=== PATIENT | female | born 2000 | race Hispanic/Latino ===

== ENCOUNTER 2021-01-31 14:33 | Emergency (ER) | payer OTHER ==
[2021-01-31 15:15] LABS: Bilirubin Neg (Negative); Blood, Urine Negative (Negative); Clarity Clear (Clear); Glucose, Urine (Dipstick) >=1000 mg/dL (Negative); Ketone, Urine 150 mg/dL (Negative); Leukocyte Negative (Negative); Nitrite Negative (Negative); Protein, Urine (Dipstick) Negative (Neg-Trace); Specific Gravity, Urine 1.005 (1.002-1.036); Urobilinogen Normal mg/dL (Less than 2)
[2021-01-31 15:33] LABS: ALT (SGPT) 20 U/L (8-55); AST (SGOT) 20 U/L (5-34); Alkaline Phosphatase 67 U/L (40-110); Anion Gap 14 mmol/L (10-20); BUN (Urea Nitrogen) 7 mg/dL (7.0-18.7); Bilirubin, Total 0.3 mg/dL (0.2-1.2); Calc. Creatinine Clearance 0 mL/min (70-130); Calcium 8.9 mg/dL (7.8-10.44); Carbon Dioxide 21 mmol/L (22-29); Chloride 102 mmol/L (98-107); Globulin 3.2 g/dL (2.4-3.5); Glucose 414 mg/dL (70-105); Potassium 4.2 mmol/L (3.5-5.1); Protein, Total 7.2 g/dL (6.0-8.3); Sodium 133 mmol/L (136-145)
[2021-01-31 15:47] LABS: #Eosinphils 0.1 10x3/uL (0.0-0.5); #Monocytes 0.3 10x3/uL (0.0-1.1); #Neutrophils 3.3 10x3/uL (1.5-8.4); %Basophils 0.6 % (0.0-2.0); %Eosinophils 1.2 % (0.0-6.0); %Lymphocytes 24.5 % (18.0-47.0); %Monocytes 6.8 % (0.0-10.0); %Neutrophils 66.3 % (40.0-75.0); Hemoglobin 13.9 g/dL (12.0-15.5); Mean Corpuscular HGB CONC 34.9 g/dL (32.0-36.0); Mean Corpuscular Hemoglobin 29.5 pg (27.0-33.0); Mean Corpuscular Volume 84.5 fl (81.6-98.3); Mean Platelet Volume 10.2 fl (7.4-10.4); Platelet Count 252 10x3/uL (150-450); RBC Distribution Width 11.6 % (11.5-14.5); Red Blood Cell (RBC) Count 4.71 10x6/uL (3.90-5.03)
[2021-01-31 16:14] LABS: Actual Bicarbonate (HCO3v) 24 mEq/L (22-28); Base Excess -1.5 mEq/L (-2.0 to +3.0); Calcium, Ionized (venous) 1.15 mmol/L (1.16-1.32); Chloride (VBG) 102 mmol/L (98-106); Hemoglobin (Hb) 13.3 g/dL (11.7-15.5); Potassium (VBG) 3.84 mmol/L (3.70-5.30); Puncture Site Other Site; RapidComm Collect By LAB.CB1; Sodium 135.3 mmol/L (133-146); pH (venous) 7.37 (7.32-7.43)
[2021-01-31] MEDS ORDERED: Insulin Regular 300 UNITS/3 ML VIAL ONE (16:19)
== END 2021-01-31 18:00 | disposition home or self-care (01) ==
LOC: CSHERS 14:33
DX: E11.65 Type 2 diabetes mellitus with hyperglycemia (principal); E86.0 Dehydration; K21.9 Gastro-esophageal reflux disease without esophagitis; F17.290 Nicotine dependence, other tobacco product, uncomplicated; Z87.19 Personal history of other diseases of the digestive system; Z79.4 Long term (current) use of insulin
CPT/HCPCS: 36415; 36416; 71045; 80053; 81003; 82010; 82805; 83690; 85025; 96374; J1815

== ENCOUNTER 2021-04-07 19:40 | Emergency (ER) | payer OTHER ==
[2021-04-07 22:35] LABS: BHCG - Serum Negative (NEGATIVE); Pregs Control Background? CLEAR/WHITE (CLR/WHITE); Pregs Control Bar Appear? YES (CONTROL BAR)
[2021-04-07 22:42] LABS: #Basophils 0.1 10x3/uL (0.0-0.2); #Eosinphils 0.3 10x3/uL (0.0-0.5); #Monocytes 0.5 10x3/uL (0.0-1.1); #Neutrophils 4.1 10x3/uL (1.5-8.4); %Basophils 0.7 % (0.0-2.0); %Eosinophils 3.8 % (0.0-6.0); %Lymphocytes 30.6 % (18.0-47.0); %Monocytes 7.4 % (0.0-10.0); %Neutrophils 57.1 % (40.0-75.0); ALT (SGPT) 10 U/L (8-55); AST (SGOT) 9 U/L (5-34); Albumin 4.2 g/dL (3.5-5.0); Alkaline Phosphatase 66 U/L (40-110); Anion Gap 13 mmol/L (10-20); BUN (Urea Nitrogen) 10 mg/dL (7.0-18.7); Bilirubin, Total 0.4 mg/dL (0.2-1.2); Calc. Creatinine Clearance 0 mL/min (70-130); Calcium 9.3 mg/dL (7.8-10.44); Carbon Dioxide 24 mmol/L (22-29); Chloride 101 mmol/L (98-107); Globulin 3.3 g/dL (2.4-3.5); Glucose 315 mg/dL (70-105); Hemoglobin 13.9 g/dL (12.0-15.5); Mean Corpuscular HGB CONC 34.9 g/dL (32.0-36.0); Mean Corpuscular Hemoglobin 29.5 pg (27.0-33.0); Mean Corpuscular Volume 84.5 fl (81.6-98.3); Platelet Count 308 10x3/uL (150-450); Potassium 4.4 mmol/L (3.5-5.1); Protein, Total 7.5 g/dL (6.0-8.3); RBC Distribution Width 12.6 % (11.5-14.5); Red Blood Cell (RBC) Count 4.71 10x6/uL (3.90-5.03); Sodium 134 mmol/L (136-145); White Blood Cell (WBC) Count 7.2 10x3/uL (3.5-10.5)
[2021-04-09 08:00] LABS: SARS-CoV-2 PCR by NAA Not Detected (NotDetected)
== END 2021-04-07 23:15 | disposition home or self-care (01) ==
LOC: CSHERS 19:40
DX: B34.9 Viral infection, unspecified (principal); Z20.822 Contact with and (suspected) exposure to COVID-19; E11.9 Type 2 diabetes mellitus without complications; K21.9 Gastro-esophageal reflux disease without esophagitis; F17.290 Nicotine dependence, other tobacco product, uncomplicated; Z79.4 Long term (current) use of insulin; Z79.899 Other long term (current) drug therapy
CPT/HCPCS: 36416; 71045; 80053; 84703; 85025; 87081; 87430; U0003; U0005

== ENCOUNTER 2021-06-06 21:09 | Emergency (ER) | payer OTHER ==
[2021-06-06] MEDS ORDERED: Ibuprofen 200 MG TAB ONE (22:25)
[2021-06-06] MEDS ORDERED: Acetaminophen 500 MG TAB ONE (22:26)
[2021-06-07 18:40] LABS: SARS-CoV-2 PCR by NAA Not Detected (NotDetected)
== END 2021-06-06 23:35 | disposition home or self-care (01) ==
LOC: CSHERS 21:09
DX: B34.9 Viral infection, unspecified (principal); Z20.822 Contact with and (suspected) exposure to COVID-19; E11.9 Type 2 diabetes mellitus without complications; K21.9 Gastro-esophageal reflux disease without esophagitis; F17.290 Nicotine dependence, other tobacco product, uncomplicated
CPT/HCPCS: 36416; 87804; 99283; U0003; U0005

== ENCOUNTER 2021-10-04 14:48 | Emergency (ER) | payer OTHER | END 2021-10-04 16:45 | disposition home or self-care (01) | LOC: CSHERS 14:48 | DX: U07.1 COVID-19 (principal); F17.290 Nicotine dependence, other tobacco product, uncomplicated; E11.9 Type 2 diabetes mellitus without complications; K21.9 Gastro-esophageal reflux disease without esophagitis | CPT/HCPCS: 99283; U0003; U0005 ==

== ENCOUNTER 2022-03-10 18:46 | Emergency (ER) | payer OTHER | END 2022-03-10 22:35 | disposition left against medical advice (07) | LOC: CSHERS 18:46 | DX: Z53.21 Procedure and treatment not carried out due to patient leaving prior to being seen by health care provider (principal) ==

== ENCOUNTER 2022-07-12 11:43 | Emergency (ER) | payer OTHER ==
[2022-07-12 12:27] LABS: Bilirubin Neg (Negative); Blood, Urine Negative (Negative); Clarity Clear (Clear); Glucose, Urine (Dipstick) >=1000 mg/dL (Negative); Ketone, Urine 15 mg/dL (Negative); Leukocyte 25 (Negative); Nitrite Negative (Negative); Protein, Urine (Dipstick) 15 mg/dl (Neg-Trace); Urobilinogen Normal mg/dL (Less than 2)
[2022-07-12 12:30] LABS: Pregnancy Test - Urine (BHCG) Negative (Negative); Pregu Control Background? CLEAR/WHITE (CLR/WHITE); Pregu Control Bar Appear? YES (CONTROL BAR)
[2022-07-12 12:52] LABS: RBC/HPF 0-3 HPF (0-3); Squamous Epithelial 0-3 HPF (0-3)
[2022-07-12 12:54] LABS: Bacteria/HPF 1+ HPF (None Seen)
[2022-07-12 21:21] LABS: Chlamydia by PCR, Vaginal Swab Not Detected (NotDetected); GC by PCR, Vaginal Swab Not Detected (NotDetected)
== END 2022-07-12 13:19 | disposition home or self-care (01) ==
LOC: CSHERS 11:43
DX: N76.0 Acute vaginitis (principal); R81 Glycosuria; E11.9 Type 2 diabetes mellitus without complications
CPT/HCPCS: 81003; 81015; 81025; 87480; 87491; 87510; 87591; 87660; 99283

== ENCOUNTER 2024-12-08 20:19 | Emergency (ER) | payer OTHER, SELFPAY ==
[2024-12-08] MEDS ORDERED: Ketorolac Tromethamine 30 MG (1 mL) VIAL ONE (20:48)
[2024-12-08] MEDS ORDERED: Amoxicillin/Potassium Clav 875 MG TAB ONE (20:48)
[2024-12-08 20:53] LABS: #Basophils 0.06 10x3/uL (0.0-0.2); #Eosinophils 0.06 10x3/uL (0.0-0.5); #Monocytes 0.42 10x3/uL (0.0-1.1); #Neutrophils 7.30 10x3/uL (1.5-8.4); %Basophils 0.6 % (0.0-2.0); %Eosinophils 0.6 % (0.0-6.0); %Lymphocytes 17.8 % (18.0-47.0); %Monocytes 4.4 % (0.0-10.0); %Neutrophils 76.3 % (40.0-75.0); Hematocrit 38.0 % (34.9-44.5); Hemoglobin 12.8 g/dL (12.0-15.5); Mean Corpuscular Hemoglobin 27.6 pg (27.0-33.0); Mean Corpuscular Volume 82.1 fL (81.6-98.3); Platelet Count 449 10x3/uL (150-450); Red Blood Cell (RBC) Count 4.63 10x6/uL (3.90-5.03); White Blood Cell (WBC) Count 9.58 10x3/uL (3.5-10.5)
[2024-12-08 21:09] LABS: ALT (SGPT) Less than 7 U/L (Less than 34); AST (SGOT) 15 U/L (11-34); Albumin 3.6 g/dL (3.1-4.5); Alkaline Phosphatase 123 U/L (40-110); Anion Gap 18 mmol/L (10-20); BUN (Urea Nitrogen) 9 mg/dL (7.0-18.7); Bilirubin, Total 0.2 mg/dL (0.3-1.2); Calc. Creatinine Clearance 0 mL/min (70-130); Calcium 9.8 mg/dL (7.8-10.44); Carbon Dioxide 22 mmol/L (22-29); Chloride 93 mmol/L (98-107); Globulin 5.4 g/dL (2.4-3.5); Potassium 3.9 mmol/L (3.5-5.1); Sodium 129 mmol/L (136-145)
[2024-12-08] MEDS ORDERED: Dexamethasone 10 MG/ML VIAL ONE (21:20)
[2024-12-08 21:21] LABS: Glucose 579 mg/dL (70-105)
[2024-12-08 21:28] LABS: BHCG - Serum Negative (NEGATIVE); Pregs Control Background? CLEAR/WHITE (CLR/WHITE); Pregs Control Bar Appear? YES (CONTROL BAR)
== END 2024-12-09 03:38 | disposition home or self-care (01) ==
LOC: CSHERS 20:19
DX: K08.89 Other specified disorders of teeth and supporting structures (principal); E11.9 Type 2 diabetes mellitus without complications; F17.290 Nicotine dependence, other tobacco product, uncomplicated; Z79.899 Other long term (current) drug therapy
CPT/HCPCS: 36416; 80053; 84703; 85025; 96374; 96375; 96376; J1100; J1815; J1885; J2270